=== PATIENT | female | born 1970 | race Caucasian/White ===

== ENCOUNTER 2021-05-29 15:04 | Emergency (ER) | payer BC ==
[~2021-05-29] VITALS: Ht 167.6 cm; Wt 86.2 kg
[2021-05-29 16:14] LABS: HEMOGLOBIN 13.5 gm/dl (12.3-15.3); RED BLOOD COUNT 4.27 M/UL (4.00-5.10); WHITE BLOOD COUNT 10.7 K/UL (4.5-11.0)
[2021-05-29 16:36] LABS: BUN/CREATININE RATIO 13 (0-10)
[2021-05-29] MEDS ORDERED: BENZONATATE100 MG PO (17:51)
[2021-05-29] MEDS ORDERED: COMBIVENT RESPIM4 GM INH (17:51)
== END 2021-05-29 19:40 | disposition home or self-care (01) ==
LOC: ER1 15:04
PROVIDERS: Physician Assistant
DX: U07.1 COVID-19 (principal); Z79.82 Long term (current) use of aspirin; Z23 Encounter for immunization
CPT/HCPCS: 36600; 71045; 80053; 82803; 83605; 85025; 87040; 93005; 99284; J7030; M0243